=== PATIENT | male | born 1960 | race African-American/Black ===

== ENCOUNTER 2023-02-11 17:19 | Emergency (ER) | payer SELFPAY ==
[~2023-02-11] VITALS: Ht 177.8 cm; Wt 68.0 kg
[2023-02-11 17:24] VITALS: BP 137/77
--- NOTE | 2023-02-11 17:35 | NUR ---
PT IN CHAIR IN HANDCUFFS. PD CHAIRSIDE
[2023-02-11] MEDS ORDERED: IBUP-2213 PO (18:05)
--- NOTE | 2023-02-11 18:18 | NUR ---
HR 104 . PA MADE AWARE AND OK W/ PT D/C
--- NOTE | 2023-02-11 18:18 | NUR ---
PATIENT BIB [employer]. PATIENT EXAMINED BY DR. TRAN. PATIENT MEDICALLY CLEARED AND RELEASED IN CUSTODY IN STABLE CONDITION. ORIGINAL PRE-BOOK FORM GIVEN TO OFFICER ALEM #[id number].
== END 2023-02-11 18:18 | disposition home or self-care (01) ==
LOC: MED 17:19
DX: R07.9 Chest pain, unspecified (principal)
CPT/HCPCS: 93005; 99283